=== PATIENT | female | born 1950 | race Two or more races ===

== ENCOUNTER 2023-05-08 16:46 | Inpatient (IN) | payer MEDICARE, OTHER ==
[~2023-05-08] VITALS: Ht 180.3 cm; Wt 73.1 kg
[2023-05-08] MEDS ORDERED: ESCI20TA PO (17:59)
[2023-05-08] MEDS ORDERED: PRAV20TA4 PO (17:59)
[2023-05-08] MEDS ORDERED: DIVA-78 PO (17:59)
[2023-05-08] MEDS ORDERED: DOCU-141 PO (17:59)
[2023-05-08] MEDS ORDERED: APIX5TAB PO (17:59)
[2023-05-08] MEDS ORDERED: METF-440 PO (17:59)
[2023-05-08] MEDS ORDERED: METO25TA3 PO (17:59)
[2023-05-08] MEDS ORDERED: QUET300T2 PO (17:59)
[2023-05-08 18:10] LABS: BASOPHILS % (AUTO) 0.6 % (0.0-2.0); EOSINOPHILS # (AUTO) 0.2 K/uL (0.0-0.7); EOSINOPHILS % (AUTO) 3.3 % (0.0-6.0); HEMATOCRIT 37 % (33-45); LYMPHOCYTES # (AUTO) 2.4 K/uL (0.8-4.8); LYMPHOCYTES % (AUTO) 32.3 % (20.0-44.0); MEAN CORPUSCULAR HEMOGLOBIN 27 PG (26.0-33.0); MEAN CORPUSCULAR HGB CONC 33 g/dl (31.0-36.0); MEAN CORPUSCULAR VOLUME 83 fL (82-100); MONOCYTES # (AUTO) 0.8 K/uL (0.1-1.30); NEUTROPHILS % (AUTO) 52.8 % (43.0-81.0); PLATELET COUNT (AUTO) 232 K/uL (150-450); RED BLOOD CELL COUNT(AUTO) 4.41 MIL/uL (4.0-5.2); RED CELL DISTRIBUTION WIDTH 14.5 % (11.5-15.0); WHITE BLOOD COUNT (AUTO) 7.6 K/uL (4.3-11.0)
[2023-05-08 18:18] LABS: CALCIUM, SERUM 9.6 mg/dL (8.5-10.1); CARBON DIOXIDE 28 mmol/L (21-32); CHLORIDE 105 mmol/L (98-107); GLUCOSE 118 mg/dL (74-106); POTASSIUM 4.8 mmol/L (3.5-5.1); SODIUM SERUM 140 mmol/L (136-145); UREA NITROGEN, BLOOD 23 mg/dL (7-18)
[2023-05-08] MEDS ORDERED: ACETAMINOPHEN 325 MG TABLET PO PRN (20:30)
[2023-05-08] MEDS ORDERED: IV NS 0.9% 1,000 ML IV PRN (20:30)
[2023-05-08] MEDS ORDERED: MAGNESIUM HYDROXIDE 30 ML UDC PO PRN (20:30)
[2023-05-08] MEDS ORDERED: MAG HYDROX/AL HYDROX/SIMETH 30 ML UDC PO PRN (20:30)
[2023-05-08] MEDS ORDERED: Z GUARD REMEDY 4 OZ OINT TP PRN (20:30)
[2023-05-08] MEDS ORDERED: ONDANSETRON HCL/PF 4 MG/2 ML VIAL IVP PRN (20:30)
[2023-05-08] MEDS ORDERED: HYDROCODONE/APAP 5/325MG TABLET PO PRN (20:30)
[2023-05-08] MEDS ORDERED: ENOXAPARIN SODIUM 40 MG/0.4 ML DISP.SYRIN SQ SCH (21:00)
[2023-05-08 21:40] VITALS: BP 112/62; TEMP 98.1; O2SAT 98
[2023-05-08 22:00] VITALS: BP 112/62; TEMP 98.1; O2SAT 98
[2023-05-08] MEDS: VANCOMYCIN 0.75 GM in IV D5W 250 ML IV SCH (22:16)
[2023-05-09 06:10] LABS: BASOPHILS % (AUTO) 0.5 % (0.0-2.0); EOSINOPHILS # (AUTO) 0.2 K/uL (0.0-0.7); EOSINOPHILS % (AUTO) 2.5 % (0.0-6.0); HEMATOCRIT 37 % (33-45); HEMOGLOBIN 11.9 g/dL (11.5-14.8); LYMPHOCYTES # (AUTO) 3.1 K/uL (0.8-4.8); LYMPHOCYTES % (AUTO) 37.3 % (20.0-44.0); MEAN CORPUSCULAR HEMOGLOBIN 27 PG (26.0-33.0); MEAN CORPUSCULAR HGB CONC 33 g/dl (31.0-36.0); MEAN CORPUSCULAR VOLUME 82 fL (82-100); MONOCYTES # (AUTO) 1.1 K/uL (0.1-1.30); NEUTROPHILS # (AUTO) 3.7 K/uL (1.8-8.9); NEUTROPHILS % (AUTO) 45.7 % (43.0-81.0); PLATELET COUNT (AUTO) 259 K/uL (150-450); RED BLOOD CELL COUNT(AUTO) 4.45 MIL/uL (4.0-5.2); RED CELL DISTRIBUTION WIDTH 14.6 % (11.5-15.0); WHITE BLOOD COUNT (AUTO) 8.2 K/uL (4.3-11.0)
[2023-05-09 06:25] LABS: CALCIUM, SERUM 9.5 mg/dL (8.5-10.1); CREATININE 0.8 mg/dL (0.6-1.3); PHOSPHORUS 3.9 mg/dL (2.5-4.9); POTASSIUM 4.2 mmol/L (3.5-5.1)
[2023-05-09] MEDS: PANTOPRAZOLE 40 MG TABLET.DR PO SCH (08:27)
[2023-05-09 08:33] VITALS: BP 113/57; TEMP 98.4; O2SAT 97
[2023-05-09] MEDS: VANCOMYCIN 0.75 GM in IV D5W 250 ML IV SCH ×2 (09:07→21:51)
[2023-05-09] MEDS ORDERED: LORAZEPAM INJ 2 MG/ML VIAL IV ONE (10:30)
[2023-05-09] MEDS ORDERED: ESCITALOPRAM OXALATE (10 MG) 10 MG TABLET PO SCH (11:00)
[2023-05-09] MEDS: METFORMIN 500 MG TABLET PO SCH ×2 (12:26→16:28)
[2023-05-09] MEDS: DIVALPROEX SODIUM 500 MG TABLET.DR PO SCH ×2 (12:26→16:28)
[2023-05-09 16:00] VITALS: BP 117/60; TEMP 98.2; O2SAT 98
[2023-05-09] MEDS: DOCUSATE SODIUM 100 MG CAPSULE PO SCH (16:28)
[2023-05-09] MEDS: APIXABAN 5 MG TABLET PO SCH (16:34)
[2023-05-09 20:00] VITALS: BP 156/53; TEMP 97.8; O2SAT 98
[2023-05-09] MEDS: ATORVASTATIN 10 MG TABLET PO SCH (21:14)
[2023-05-09] MEDS: QUETIAPINE FUMARATE 100 MG TABLET PO SCH (21:14)
[2023-05-10 06:45] LABS: CALCIUM, SERUM 9.4 mg/dL (8.5-10.1); CREATININE 0.8 mg/dL (0.6-1.3); POTASSIUM 4.3 mmol/L (3.5-5.1)
[2023-05-10 07:30] VITALS: BP 127/66; TEMP 98.2; O2SAT 99
[2023-05-10] MEDS: PANTOPRAZOLE 40 MG TABLET.DR PO SCH (08:26)
[2023-05-10] MEDS: DIVALPROEX SODIUM 500 MG TABLET.DR PO SCH ×3 (08:27→17:16)
[2023-05-10] MEDS: DOCUSATE SODIUM 100 MG CAPSULE PO SCH ×2 (08:27→17:17)
[2023-05-10] MEDS: METFORMIN 500 MG TABLET PO SCH ×3 (08:27→17:16)
[2023-05-10] MEDS: METOPROLOL SUCCINATE 25 MG TAB.SR.24H PO SCH (08:28)
[2023-05-10] MEDS: APIXABAN 5 MG TABLET PO SCH ×2 (08:33→17:28)
[2023-05-10] MEDS: CLINDAMYCIN HCL 150 MG CAPSULE PO SCH ×3 (12:20→23:17)
[2023-05-10 16:00] VITALS: BP 100/69; TEMP 97.7; O2SAT 98
[2023-05-10 20:00] VITALS: BP 97/59; TEMP 98.6; O2SAT 96
[2023-05-10] MEDS: QUETIAPINE FUMARATE 100 MG TABLET PO SCH (21:33)
[2023-05-10] MEDS: ATORVASTATIN 10 MG TABLET PO SCH (21:33)
[2023-05-11] MEDS: CLINDAMYCIN HCL 150 MG CAPSULE PO SCH ×3 (05:02→17:33)
[2023-05-11 06:26] LABS: CALCIUM, SERUM 9.7 mg/dL (8.5-10.1); CARBON DIOXIDE 28 mmol/L (21-32); CHLORIDE 105 mmol/L (98-107); CREATININE 0.8 mg/dL (0.6-1.3); GLUCOSE 161 mg/dL (74-106); POTASSIUM 4.5 mmol/L (3.5-5.1); SODIUM SERUM 140 mmol/L (136-145); UREA NITROGEN, BLOOD 26 mg/dL (7-18)
[2023-05-11 07:00] VITALS: BP 110/53; TEMP 98; O2SAT 95
[2023-05-11] MEDS: DIVALPROEX SODIUM 500 MG TABLET.DR PO SCH ×3 (08:29→17:33)
[2023-05-11] MEDS: PANTOPRAZOLE 40 MG TABLET.DR PO SCH (08:29)
[2023-05-11] MEDS: DOCUSATE SODIUM 100 MG CAPSULE PO SCH ×2 (08:29→17:32)
[2023-05-11] MEDS: METOPROLOL SUCCINATE 25 MG TAB.SR.24H PO SCH (08:29)
[2023-05-11] MEDS: METFORMIN 500 MG TABLET PO SCH ×3 (08:29→17:32)
[2023-05-11] MEDS: APIXABAN 5 MG TABLET PO SCH ×2 (08:31→17:35)
[2023-05-11 16:00] VITALS: BP 89/50; TEMP 97.8; O2SAT 96
[2023-05-12] MEDS ORDERED: MAG30ORA PO (09:48)
[2023-05-12] MEDS ORDERED: ACET-868 PO (09:48)
[2023-05-12] MEDS ORDERED: ONDA-97 PO (09:48)
[2023-05-12] MEDS ORDERED: ATOR10TA PO (09:48)
[2023-05-12] MEDS ORDERED: MAGN400O6 PO (09:48)
[2023-05-12] MEDS ORDERED: CLIN300C12 PO (09:48)
[2023-05-12] MEDS ORDERED: HYDR-4303 PO (09:48)
[2023-05-12] MEDS ORDERED: PANT40TA2 PO (09:48)
[2023-05-12] MEDS ORDERED: ALLA266C2 TP (09:48)
== END 2023-05-11 19:15 | DRG 603 ==
LOC: ER 17:13 → MED 20:43
PROVIDERS: ATTEND Nurse Practitioner Acute Care
DX: L03.116 Cellulitis of left lower limb (principal); D68.69 Other thrombophilia; I10 Essential (primary) hypertension; I48.91 Unspecified atrial fibrillation; F31.9 Bipolar disorder, unspecified; M19.90 Unspecified osteoarthritis, unspecified site; Z79.01 Long term (current) use of anticoagulants; Z79.84 Long term (current) use of oral hypoglycemic drugs; Z88.0 Allergy status to penicillin; F25.9 Schizoaffective disorder, unspecified; Z73.6 Limitation of activities due to disability
CPT/HCPCS: 36415; 80048-TC; 80202-TC; 83735-TC; 84100-TC; 85025-TC; 93971-TC; A4223; G0378; J1650; J2060; J3370; J7030; J7060

== ENCOUNTER 2023-05-11 19:20 | Inpatient (IN) | payer MEDICARE, OTHER ==
[~2023-05-11] VITALS: Ht 180.3 cm; Wt 73.0 kg
[~2023-05-11 19:20] MED LIST: APIX5TAB PO; DIVA-78 PO; DOCU-141 PO; ESCI20TA PO; METF-440 PO; METO25TA3 PO; PRAV20TA4 PO; QUET300T2 PO
[2023-05-11 21:00] VITALS: BP 102/56; TEMP 98; O2SAT 98
[2023-05-11] MEDS ORDERED: MAGNESIUM HYDROXIDE 30 ML UDC PO PRN (21:30)
[2023-05-11] MEDS ORDERED: BLOOD SUGAR DIAGNOSTIC 1 EACH STRIP IN ONE (21:30)
[2023-05-11] MEDS ORDERED: MAG HYDROX/AL HYDROX/SIMETH 30 ML UDC PO PRN (21:30)
[2023-05-11] MEDS ORDERED: ACETAMINOPHEN 325 MG TABLET PO PRN (21:30)
[2023-05-11] MEDS ORDERED: TEMAZEPAM 7.5 MG CAPSULE PO PRN (21:30)
[2023-05-11 21:34] VITALS: BP 102/56; TEMP 98.2; O2SAT 98
[2023-05-12 07:16] LABS: ALBUMIN 2.6 g/dL (3.4-5.0); BILIRUBIN,TOTAL 0.4 mg/dL (0.2-1.0); CALCIUM, SERUM 9.3 mg/dL (8.5-10.1); CREATININE 0.9 mg/dL (0.6-1.3); POTASSIUM 4.1 mmol/L (3.5-5.1); TOTAL PROTEIN, SERUM 6.1 g/dL (6.4-8.2)
[2023-05-12 07:23] LABS: CHOLESTEROL 132 mg/dL (<200); HDL CHOLESTEROL 30 mg/dL (40-60); LDL 78 mg/dL (0-99); TRIGLYCERIDES 95 mg/dL (30-150)
[2023-05-12 08:00] VITALS: BP 117/50; TEMP 97.8; O2SAT 100
[2023-05-12] MEDS ORDERED: DIVALPROEX SODIUM 500 MG TABLET.DR PO SCH (09:00)
[2023-05-12] MEDS: DOCUSATE SODIUM 100 MG CAPSULE PO SCH ×2 (09:31→17:08)
[2023-05-12] MEDS: METFORMIN 500 MG TABLET PO SCH ×3 (09:31→17:08)
[2023-05-12] MEDS: METOPROLOL SUCCINATE 25 MG TAB.SR.24H PO SCH (09:32)
[2023-05-12] MEDS ORDERED: ALLA266C2 TP (09:48)
[2023-05-12] MEDS ORDERED: CLIN300C12 PO (09:48)
[2023-05-12] MEDS ORDERED: MAG30ORA PO (09:48)
[2023-05-12] MEDS ORDERED: HYDR-4303 PO (09:48)
[2023-05-12] MEDS ORDERED: ONDA-97 PO (09:48)
[2023-05-12] MEDS ORDERED: ACET-868 PO (09:48)
[2023-05-12] MEDS ORDERED: ATOR10TA PO (09:48)
[2023-05-12] MEDS ORDERED: MAGN400O6 PO (09:48)
[2023-05-12] MEDS ORDERED: PANT40TA2 PO (09:48)
[2023-05-12] MEDS: APIXABAN 5 MG TABLET PO SCH ×2 (10:02→17:09)
[2023-05-12] MEDS: DIVALPROEX SODIUM 500 MG TABLET.DR PO SCH ×2 (13:56→17:08)
[2023-05-12 16:00] VITALS: BP 120/51; TEMP 98.1; O2SAT 99
[2023-05-12] MEDS: LORAZEPAM 0.5 MG TABLET PO PRN (16:18)
[2023-05-12] MEDS: CLINDAMYCIN HCL 150 MG CAPSULE PO SCH (18:02)
[2023-05-12 20:38] VITALS: BP 108/80; TEMP 97.6; O2SAT 98
[2023-05-12] MEDS: QUETIAPINE FUMARATE 100 MG TABLET PO SCH (21:15)
[2023-05-12] MEDS: ATORVASTATIN 10 MG TABLET PO SCH (21:16)
[2023-05-13] MEDS: CLINDAMYCIN HCL 150 MG CAPSULE PO SCH ×4 (00:10→18:30)
[2023-05-13 08:00] VITALS: BP 102/66; TEMP 97.9; O2SAT 98
[2023-05-13] MEDS: DOCUSATE SODIUM 100 MG CAPSULE PO SCH ×2 (08:39→16:40)
[2023-05-13] MEDS: METFORMIN 500 MG TABLET PO SCH ×3 (08:39→16:40)
[2023-05-13] MEDS: APIXABAN 5 MG TABLET PO SCH ×2 (08:42→16:41)
[2023-05-13] MEDS: DIVALPROEX SODIUM 500 MG TABLET.DR PO SCH ×3 (08:42→16:40)
[2023-05-13] MEDS: METOPROLOL SUCCINATE 25 MG TAB.SR.24H PO SCH (08:43)
[2023-05-13] MEDS ORDERED: HYDROCODONE/APAP 5/325MG TABLET PO PRN (12:00)
[2023-05-13] MEDS ORDERED: ACETAMINOPHEN 325 MG TABLET PO PRN (12:00)
[2023-05-13] MEDS ORDERED: MAGNESIUM HYDROXIDE 30 ML UDC PO PRN (12:00)
[2023-05-13] MEDS ORDERED: MAG HYDROX/AL HYDROX/SIMETH 30 ML UDC PO PRN (12:00)
[2023-05-13 16:00] VITALS: BP 122/60; TEMP 97.7; O2SAT 97
[2023-05-13] MEDS ORDERED: CLINDAMYCIN HCL 150 MG CAPSULE PO SCH (18:00)
[2023-05-13 21:13] VITALS: BP 119/56; TEMP 98.2; O2SAT 98
[2023-05-13 21:15] VITALS: BP 119/56; TEMP 98.2; O2SAT 98
[2023-05-13] MEDS ORDERED: ATORVASTATIN 10 MG TABLET PO SCH (22:00)
[2023-05-13] MEDS: QUETIAPINE FUMARATE 100 MG TABLET PO SCH (22:52)
[2023-05-13] MEDS: ATORVASTATIN 10 MG TABLET PO SCH (22:52)
[2023-05-14] MEDS: CLINDAMYCIN HCL 150 MG CAPSULE PO SCH ×5 (05:52→23:08)
[2023-05-14 08:00] VITALS: BP 107/55; TEMP 97.8; O2SAT 96
[2023-05-14] MEDS: APIXABAN 5 MG TABLET PO SCH ×2 (08:07→17:00)
[2023-05-14] MEDS: DIVALPROEX SODIUM 500 MG TABLET.DR PO SCH ×3 (08:07→17:00)
[2023-05-14] MEDS: DOCUSATE SODIUM 100 MG CAPSULE PO SCH ×2 (08:07→17:00)
[2023-05-14] MEDS: METFORMIN 500 MG TABLET PO SCH ×3 (08:07→17:00)
[2023-05-14] MEDS: PANTOPRAZOLE 40 MG TABLET.DR PO SCH (08:07)
[2023-05-14] MEDS: METOPROLOL SUCCINATE 25 MG TAB.SR.24H PO SCH (08:08)
[2023-05-14 16:00] VITALS: BP 111/63; TEMP 97.8; O2SAT 96
[2023-05-14 20:00] VITALS: BP 110/62; TEMP 97.6; O2SAT 97
[2023-05-14 20:47] LABS: THYROID STIMULATING HORMONE 0.755 uIU/mL (0.358-3.74)
[2023-05-14] MEDS: QUETIAPINE FUMARATE 100 MG TABLET PO SCH (21:13)
[2023-05-14] MEDS: ATORVASTATIN 10 MG TABLET PO SCH (21:22)
[2023-05-15] MEDS: CLINDAMYCIN HCL 150 MG CAPSULE PO SCH ×4 (05:13→23:18)
[2023-05-15] MEDS: PANTOPRAZOLE 40 MG TABLET.DR PO SCH (07:54)
[2023-05-15 08:00] VITALS: BP 109/73; TEMP 98; O2SAT 100
[2023-05-15] MEDS: DIVALPROEX SODIUM 500 MG TABLET.DR PO SCH ×4 (08:15→17:11)
[2023-05-15] MEDS: DOCUSATE SODIUM 100 MG CAPSULE PO SCH ×2 (08:15→17:12)
[2023-05-15] MEDS: METOPROLOL SUCCINATE 25 MG TAB.SR.24H PO SCH (08:16)
[2023-05-15] MEDS: METFORMIN 500 MG TABLET PO SCH ×4 (08:16→17:12)
[2023-05-15] MEDS: APIXABAN 5 MG TABLET PO SCH ×3 (08:17→17:11)
[2023-05-15 16:00] VITALS: BP 121/66; TEMP 97.6; O2SAT 100
[2023-05-15] MEDS: QUETIAPINE FUMARATE 100 MG TABLET PO SCH (21:07)
[2023-05-15] MEDS: ATORVASTATIN 10 MG TABLET PO SCH (21:07)
[2023-05-15 21:34] VITALS: BP 111/64; TEMP 98.6; O2SAT 100
[2023-05-16] MEDS: CLINDAMYCIN HCL 150 MG CAPSULE PO SCH ×4 (05:21→23:03)
[2023-05-16 06:06] LABS: FOLIC ACID 8.8 ng/mL (>3.0)
[2023-05-16 08:00] VITALS: BP 126/73; TEMP 98.6; O2SAT 98
[2023-05-16] MEDS: PANTOPRAZOLE 40 MG TABLET.DR PO SCH (08:00)
[2023-05-16] MEDS: METFORMIN 500 MG TABLET PO SCH ×3 (08:04→17:24)
[2023-05-16] MEDS: DIVALPROEX SODIUM 500 MG TABLET.DR PO SCH ×4 (08:04→17:24)
[2023-05-16] MEDS: APIXABAN 5 MG TABLET PO SCH ×3 (08:04→17:24)
[2023-05-16] MEDS: METOPROLOL SUCCINATE 25 MG TAB.SR.24H PO SCH (08:05)
[2023-05-16] MEDS: DOCUSATE SODIUM 100 MG CAPSULE PO SCH ×3 (08:05→17:24)
[2023-05-16 16:00] VITALS: BP 135/67; TEMP 97.9; O2SAT 98
[2023-05-16 20:00] VITALS: BP 132/79; TEMP 98.5; O2SAT 99
[2023-05-16] MEDS: ATORVASTATIN 10 MG TABLET PO SCH (21:02)
[2023-05-16] MEDS: QUETIAPINE FUMARATE 100 MG TABLET PO SCH (21:02)
[2023-05-17] MEDS: CLINDAMYCIN HCL 150 MG CAPSULE PO SCH (05:13)
[2023-05-17 08:00] VITALS: BP 120/67; TEMP 98.1; O2SAT 100
[2023-05-17] MEDS: METFORMIN 500 MG TABLET PO SCH ×3 (08:06→16:20)
[2023-05-17] MEDS: METOPROLOL SUCCINATE 25 MG TAB.SR.24H PO SCH (08:07)
[2023-05-17] MEDS: APIXABAN 5 MG TABLET PO SCH ×2 (08:07→16:21)
[2023-05-17] MEDS: DOCUSATE SODIUM 100 MG CAPSULE PO SCH ×2 (08:08→16:20)
[2023-05-17] MEDS: PANTOPRAZOLE 40 MG TABLET.DR PO SCH (08:08)
[2023-05-17] MEDS: DIVALPROEX SODIUM 500 MG TABLET.DR PO SCH ×3 (08:08→16:20)
[2023-05-17 16:00] VITALS: BP 133/76; TEMP 97.5; O2SAT 100
[2023-05-17] MEDS: ATORVASTATIN 10 MG TABLET PO SCH (21:25)
[2023-05-17] MEDS: QUETIAPINE FUMARATE 100 MG TABLET PO SCH (21:25)
[2023-05-18 07:34] LABS: BASOPHILS % (AUTO) 0.6 % (0.0-2.0); EOSINOPHILS # (AUTO) 0.2 K/uL (0.0-0.7); HEMATOCRIT 33 % (33-45); LYMPHOCYTES # (AUTO) 2.2 K/uL (0.8-4.8); LYMPHOCYTES % (AUTO) 32.7 % (20.0-44.0); MEAN CORPUSCULAR HEMOGLOBIN 27 PG (26.0-33.0); MEAN CORPUSCULAR HGB CONC 33 g/dl (31.0-36.0); MEAN CORPUSCULAR VOLUME 82 fL (82-100); MONOCYTES # (AUTO) 0.7 K/uL (0.1-1.30); MONOCYTES % (AUTO) 11.1 % (2.0-12.0); NEUTROPHILS # (AUTO) 3.5 K/uL (1.8-8.9); NEUTROPHILS % (AUTO) 52.6 % (43.0-81.0); PLATELET COUNT (AUTO) 216 K/uL (150-450); RED BLOOD CELL COUNT(AUTO) 4.06 MIL/uL (4.0-5.2); RED CELL DISTRIBUTION WIDTH 14.6 % (11.5-15.0); WHITE BLOOD COUNT (AUTO) 6.6 K/uL (4.3-11.0)
[2023-05-18 07:55] LABS: ALBUMIN 2.7 g/dL (3.4-5.0); BILIRUBIN,TOTAL 0.4 mg/dL (0.2-1.0); CALCIUM, SERUM 9.7 mg/dL (8.5-10.1); CREATININE 0.8 mg/dL (0.6-1.3); POTASSIUM 4.1 mmol/L (3.5-5.1); TOTAL PROTEIN, SERUM 6.4 g/dL (6.4-8.2)
[2023-05-18 08:00] VITALS: BP 109/54; TEMP 98.8; O2SAT 98
[2023-05-18] MEDS: PANTOPRAZOLE 40 MG TABLET.DR PO SCH (08:28)
[2023-05-18] MEDS: DIVALPROEX SODIUM 500 MG TABLET.DR PO SCH ×3 (08:36→17:12)
[2023-05-18] MEDS: METFORMIN 500 MG TABLET PO SCH ×3 (08:36→17:12)
[2023-05-18] MEDS: DOCUSATE SODIUM 100 MG CAPSULE PO SCH ×2 (08:36→17:12)
[2023-05-18] MEDS: METOPROLOL SUCCINATE 25 MG TAB.SR.24H PO SCH (08:37)
[2023-05-18] MEDS: APIXABAN 5 MG TABLET PO SCH ×2 (08:38→18:04)
[2023-05-18 16:00] VITALS: BP 118/69; TEMP 98.6; O2SAT 98
[2023-05-18 20:33] VITALS: BP 120/68; TEMP 98.4; O2SAT 98
[2023-05-18] MEDS: QUETIAPINE FUMARATE 100 MG TABLET PO SCH (21:30)
[2023-05-18] MEDS: ATORVASTATIN 10 MG TABLET PO SCH (21:30)
[2023-05-19 08:00] VITALS: BP 108/54; TEMP 98.2; O2SAT 100
[2023-05-19] MEDS: METOPROLOL SUCCINATE 25 MG TAB.SR.24H PO SCH (09:00)
[2023-05-19] MEDS: PANTOPRAZOLE 40 MG TABLET.DR PO SCH (09:34)
[2023-05-19] MEDS: DIVALPROEX SODIUM 500 MG TABLET.DR PO SCH ×3 (09:34→17:00)
[2023-05-19] MEDS: LEVOTHYROXINE SODIUM 50 MCG TABLET PO SCH (09:34)
[2023-05-19] MEDS: DOCUSATE SODIUM 100 MG CAPSULE PO SCH ×2 (09:34→17:00)
[2023-05-19] MEDS: METFORMIN 500 MG TABLET PO SCH ×3 (09:34→17:00)
[2023-05-19] MEDS: APIXABAN 5 MG TABLET PO SCH ×2 (10:00→17:00)
[2023-05-19] MEDS: QUETIAPINE FUMARATE 25 MG TABLET PO SCH ×2 (12:27→17:00)
[2023-05-19 16:00] VITALS: BP 124/62; TEMP 98.6; O2SAT 99
[2023-05-19] MEDS ORDERED: diphenhydrAMINE HCL 50 MG/ML VIAL IM ONE (17:00)
[2023-05-19] MEDS ORDERED: LORAZEPAM INJ 2 MG/ML VIAL IM ONE (17:00)
[2023-05-19] MEDS ORDERED: HALOPERIDOL LACTATE INJ 5 MG/ML VIAL IM ONE (17:00)
[2023-05-19 20:23] VITALS: BP 120/68; TEMP 98.6; O2SAT 99
[2023-05-19] MEDS: QUETIAPINE FUMARATE 100 MG TABLET PO SCH (21:20)
[2023-05-19] MEDS: ATORVASTATIN 10 MG TABLET PO SCH (21:20)
[2023-05-20 08:00] VITALS: BP 100/58; TEMP 98.6; O2SAT 97
[2023-05-20] MEDS: LEVOTHYROXINE SODIUM 50 MCG TABLET PO SCH (08:26)
[2023-05-20] MEDS: PANTOPRAZOLE 40 MG TABLET.DR PO SCH (08:26)
[2023-05-20] MEDS: METFORMIN 500 MG TABLET PO SCH ×3 (08:55→17:11)
[2023-05-20] MEDS: DIVALPROEX SODIUM 500 MG TABLET.DR PO SCH ×2 (08:56→13:29)
[2023-05-20] MEDS: METOPROLOL SUCCINATE 25 MG TAB.SR.24H PO SCH (08:56)
[2023-05-20] MEDS: QUETIAPINE FUMARATE 25 MG TABLET PO SCH ×3 (08:56→17:12)
[2023-05-20] MEDS: DOCUSATE SODIUM 100 MG CAPSULE PO SCH ×2 (08:56→17:13)
[2023-05-20] MEDS: APIXABAN 5 MG TABLET PO SCH ×2 (08:59→17:12)
[2023-05-20 16:00] VITALS: BP 107/69; TEMP 98.8; O2SAT 96
[2023-05-20] MEDS ORDERED: DIVALPROEX SODIUM 500 MG TABLET.DR PO SCH (17:00)
[2023-05-20] MEDS: LORAZEPAM 0.5 MG TABLET PO PRN (17:12)
[2023-05-20 20:28] VITALS: BP 100/53; TEMP 97.9; O2SAT 96
[2023-05-20] MEDS: QUETIAPINE FUMARATE 100 MG TABLET PO SCH (21:25)
[2023-05-20] MEDS: ATORVASTATIN 10 MG TABLET PO SCH (21:25)
[2023-05-21 08:00] VITALS: BP 132/67; TEMP 97.9; O2SAT 100
[2023-05-21] MEDS: METFORMIN 500 MG TABLET PO SCH ×3 (09:12→16:29)
[2023-05-21] MEDS: DOCUSATE SODIUM 100 MG CAPSULE PO SCH ×2 (09:12→16:29)
[2023-05-21] MEDS: APIXABAN 5 MG TABLET PO SCH ×2 (09:12→16:30)
[2023-05-21] MEDS: METOPROLOL SUCCINATE 25 MG TAB.SR.24H PO SCH (09:12)
[2023-05-21] MEDS: PANTOPRAZOLE 40 MG TABLET.DR PO SCH (09:12)
[2023-05-21] MEDS: DIVALPROEX SODIUM 500 MG TABLET.DR PO SCH ×3 (09:13→16:29)
[2023-05-21] MEDS: QUETIAPINE FUMARATE 25 MG TABLET PO SCH ×3 (09:13→16:29)
[2023-05-21] MEDS: LEVOTHYROXINE SODIUM 50 MCG TABLET PO SCH (09:13)
[2023-05-21 16:00] VITALS: BP 138/60; TEMP 98.8; O2SAT 100
[2023-05-21] MEDS: QUETIAPINE FUMARATE 100 MG TABLET PO SCH (21:17)
[2023-05-21] MEDS: ATORVASTATIN 10 MG TABLET PO SCH (21:17)
[2023-05-21 21:36] VITALS: BP 120/91; TEMP 98.9; O2SAT 99
[2023-05-22 08:00] VITALS: BP 127/69; TEMP 97.8; O2SAT 99
[2023-05-22] MEDS: APIXABAN 5 MG TABLET PO SCH ×2 (08:09→16:10)
[2023-05-22] MEDS: QUETIAPINE FUMARATE 25 MG TABLET PO SCH ×3 (08:09→16:07)
[2023-05-22] MEDS: LEVOTHYROXINE SODIUM 50 MCG TABLET PO SCH (08:09)
[2023-05-22] MEDS: METOPROLOL SUCCINATE 25 MG TAB.SR.24H PO SCH (08:09)
[2023-05-22] MEDS: DIVALPROEX SODIUM 500 MG TABLET.DR PO SCH ×3 (08:10→16:08)
[2023-05-22] MEDS: DOCUSATE SODIUM 100 MG CAPSULE PO SCH ×2 (08:10→16:08)
[2023-05-22] MEDS: METFORMIN 500 MG TABLET PO SCH ×3 (08:10→16:07)
[2023-05-22] MEDS: PANTOPRAZOLE 40 MG TABLET.DR PO SCH (08:10)
[2023-05-22 16:00] VITALS: BP 132/60; TEMP 97.9; O2SAT 100
[2023-05-22 20:00] VITALS: BP 123/62; TEMP 98.5; O2SAT 100
[2023-05-22] MEDS: ATORVASTATIN 10 MG TABLET PO SCH (21:25)
[2023-05-22] MEDS: QUETIAPINE FUMARATE 100 MG TABLET PO SCH (21:25)
[2023-05-23 08:00] VITALS: BP 111/68; TEMP 98.4; O2SAT 99
[2023-05-23] MEDS: PANTOPRAZOLE 40 MG TABLET.DR PO SCH (08:24)
[2023-05-23] MEDS: DIVALPROEX SODIUM 500 MG TABLET.DR PO SCH ×3 (08:24→16:22)
[2023-05-23] MEDS: METFORMIN 500 MG TABLET PO SCH ×3 (08:24→16:22)
[2023-05-23] MEDS: DOCUSATE SODIUM 100 MG CAPSULE PO SCH ×2 (08:24→16:22)
[2023-05-23] MEDS: QUETIAPINE FUMARATE 25 MG TABLET PO SCH ×3 (08:25→16:22)
[2023-05-23] MEDS: LEVOTHYROXINE SODIUM 50 MCG TABLET PO SCH (08:25)
[2023-05-23] MEDS: APIXABAN 5 MG TABLET PO SCH ×2 (08:26→16:22)
[2023-05-23] MEDS: METOPROLOL SUCCINATE 25 MG TAB.SR.24H PO SCH (08:26)
[2023-05-23] MEDS: LORAZEPAM 0.5 MG TABLET PO PRN (13:29)
[2023-05-23 16:00] VITALS: BP 100/60; TEMP 98.1; O2SAT 100
[2023-05-23 20:00] VITALS: BP 107/58; TEMP 97.6; O2SAT 98
[2023-05-23] MEDS: QUETIAPINE FUMARATE 100 MG TABLET PO SCH (21:17)
[2023-05-23] MEDS: ATORVASTATIN 10 MG TABLET PO SCH (21:17)
[2023-05-24] MEDS: DIVALPROEX SODIUM 500 MG TABLET.DR PO SCH ×3 (09:10→16:12)
[2023-05-24] MEDS: QUETIAPINE FUMARATE 25 MG TABLET PO SCH ×3 (09:10→16:12)
[2023-05-24] MEDS: PANTOPRAZOLE 40 MG TABLET.DR PO SCH (09:10)
[2023-05-24] MEDS: METFORMIN 500 MG TABLET PO SCH ×3 (09:10→16:12)
[2023-05-24] MEDS: METOPROLOL SUCCINATE 25 MG TAB.SR.24H PO SCH (09:11)
[2023-05-24] MEDS: DOCUSATE SODIUM 100 MG CAPSULE PO SCH ×2 (09:11→16:12)
[2023-05-24] MEDS: LEVOTHYROXINE SODIUM 50 MCG TABLET PO SCH (09:11)
[2023-05-24] MEDS: APIXABAN 5 MG TABLET PO SCH ×2 (09:12→16:12)
[2023-05-24 20:20] VITALS: BP 108/58; TEMP 97.8; O2SAT 98
[2023-05-24] MEDS: ATORVASTATIN 10 MG TABLET PO SCH (21:36)
[2023-05-24] MEDS: QUETIAPINE FUMARATE 100 MG TABLET PO SCH (21:36)
[2023-05-25 08:00] VITALS: BP 100/64; TEMP 97.9; O2SAT 99
[2023-05-25] MEDS: PANTOPRAZOLE 40 MG TABLET.DR PO SCH (08:17)
[2023-05-25] MEDS: QUETIAPINE FUMARATE 25 MG TABLET PO SCH (08:17)
[2023-05-25] MEDS: LEVOTHYROXINE SODIUM 50 MCG TABLET PO SCH (08:17)
[2023-05-25] MEDS: METFORMIN 500 MG TABLET PO SCH (08:17)
[2023-05-25] MEDS: DOCUSATE SODIUM 100 MG CAPSULE PO SCH (08:17)
[2023-05-25 08:18] VITALS: BP 100/64
[2023-05-25] MEDS: DIVALPROEX SODIUM 500 MG TABLET.DR PO SCH (08:18)
[2023-05-25] MEDS: METOPROLOL SUCCINATE 25 MG TAB.SR.24H PO SCH (08:18)
[2023-05-25] MEDS: APIXABAN 5 MG TABLET PO SCH (08:20)
== END 2023-05-25 13:25 | DRG 885 ==
LOC: GPS 19:20
PROVIDERS: ADMIT Psychiatry & Neurology Psychosomatic Medicine
DX: F31.9 Bipolar disorder, unspecified (principal); L03.116 Cellulitis of left lower limb; D68.69 Other thrombophilia; I10 Essential (primary) hypertension; I48.91 Unspecified atrial fibrillation; F29 Unspecified psychosis not due to a substance or known physiological condition; Z88.0 Allergy status to penicillin; M19.90 Unspecified osteoarthritis, unspecified site; Z20.822 Contact with and (suspected) exposure to COVID-19; Z73.6 Limitation of activities due to disability; G31.84 Mild cognitive impairment of uncertain or unknown etiology
CPT/HCPCS: 36415; 70450-TC; 80048-TC; 80053-TC; 80061-TC; 80164-TC; 82607-TC; 82962-TC; 83735-TC; 83921; 84439-TC; 84443-TC; 85025-TC; 87081-TC; J1200; J1630; J2060